=== PATIENT | male | born 1965 | race Caucasian/White ===

== ENCOUNTER → 2016-12-09 | Outpatient (CLI) | payer BC ==
[~2016-12-09] MED LIST: AMOX875T PO; CETI10TA84 PO; ONDA4TAB10 SL; OXYC1TAB3 PO; SULF1TAB92 PO; TAMS0.4C38 PO
--- NOTE | 2016-12-09 10:29 | DIAGNOSTIC IMAGING REPORT ---
ULTRASOUND KIDNEYS AND BLADDER CLINICAL HISTORY: Hematuria. COMPARISON STUDY: Abdominal CT dated 09/16/2015. TECHNIQUE: Real-time, grayscale, and color flow sonography of the kidneys and bladder is performed. Images are reviewed in the transverse and longitudinal planes. FINDINGS: Kidneys: The kidneys are normal in size and echotexture. The right kidney measures 12.1 cm in length and the left kidney measures 11.4 cm in length. There is no hydronephrosis. No shadowing renal calculi are identified. There is no sonographic evidence of contour deforming renal mass lesion. No perinephric fluid is identified. Bladder: The bladder is decompressed and grossly unremarkable. Bilateral ureteral jets were seen. IMPRESSION: 1. The kidneys are normal in size and without hydronephrosis. 2. The bladder was decompressed and grossly normal. Both ureteral jets were seen. Electronically signed by: Dio Carter M.D. 12/09/2016 10:28 AM Dictated Date/Time: 12/09/2016 10:27 AM
== END | disposition home or self-care (01) ==
LOC: C.ULTR 09:46
PROVIDERS: ATTEND Family Medicine
DX: M54.9 Dorsalgia, unspecified (principal)

== ENCOUNTER 2016-12-13 18:04 | Emergency (ER) | payer BC ==
[~2016-12-13 18:04] MED LIST changes: -AMOX875T PO; -ONDA4TAB10 SL; -OXYC1TAB3 PO; -SULF1TAB92 PO; -TAMS0.4C38 PO
== END 2016-12-13 18:36 | disposition left against medical advice (07) ==
LOC: C.EDB 18:05
DX: R50.9 Fever, unspecified (principal)

== ENCOUNTER 2016-12-16 08:58 | Emergency (ER) | payer BC ==
[~2016-12-16] VITALS: Ht 185.4 cm; Wt 130.0 kg
[2016-12-16 09:04] VITALS: TEMP 37.1; Ht 185.4 cm; Wt 130.0 kg
[2016-12-16 09:29] LABS: BASO % 0.4 %; BASO ABS # 0.04 K/uL (0-0.2); COMPLETE YES; EOS % 0.3 %; HEMATOCRIT 41.6 % (42-52); IG% 0.2 %; LYMPH % 7.2 %; LYMPH ABS # 0.66 K/uL (1.2-3.4); MEAN CELL VOLUME 87.2 fL (80-100); MEAN CORPUSCULAR HEMOGLOBIN 31.7 pg (25-34); MEAN CORPUSCULAR HGB CONC 36.3 g/dl (32-36); MEAN PLATELET VOLUME 8.6 fL (7.4-10.4); MONO % 9.7 %; NEUT % 82.2 %; PLATELET COUNT 283 K/uL (130-400); RED BLOOD COUNT 4.77 M/uL (4.7-6.1); WHITE BLOOD COUNT 9.15 K/uL (4.8-10.8)
[2016-12-16] MEDS ORDERED: SULF1TAB92 PO (09:42)
[2016-12-16 09:48] LABS: CALCIUM 8.4 mg/dl (8.5-10.1); CREATININE 1.2 mg/dl (0.60-1.40); POTASSIUM 3.9 mmol/L (3.5-5.1)
[2016-12-16 09:51] LABS: ALB/GLOB RATIO 0.8 (0.9-2)
[2016-12-16] MEDS ORDERED: MoRPHine SULFATE 10 MG/ML CARP/VIAL IV STA (10:06)
[2016-12-16] MEDS ORDERED: KETOROLAC TROMETHAMINE 30 MG/ML VIAL IV STA (10:06)
[2016-12-16] MEDS ORDERED: ONDANSETRON INJ 2 MG/ML 2 ML VIAL IV STA (10:06)
[2016-12-16] MEDS ORDERED: TAMSULOSIN HCL 0.4 MG CAP PO ONE (10:15)
--- NOTE | 2016-12-16 11:02 | DIAGNOSTIC IMAGING REPORT ---
ABDOMEN AND PELVIS CT WITHOUT CONTRAST CT DOSE: 1118.00 mGycm HISTORY: Flank pain left flank pain/history kidney stones TECHNIQUE: Multiaxial CT images of the abdomen and pelvis were performed without the use of intravenous and oral contrast according to the standard department stone protocol. COMPARISON STUDY: 09/16/2015 FINDINGS: Chronic atelectatic change at both lung bases. Liver spleen and pancreas are unremarkable. The left Kidneys is negative for calcification or hydronephrosis. There is slight fullness of the right renal collecting system with evidence for proximal right ureteral calculus measuring 4 mm. There are no obstructing left-sided calcifications. Bowel pattern is nonobstructive. The appendix is normal. There are several scattered colonic diverticuli with no evidence for diverticulitis. Bowel pattern is again nonobstructive. IMPRESSION: 1. Partially obstructing 4 mm calculus proximal right ureter. 2. Mild hydroureteronephrosis on the right. 3. Mild chronic sigmoid diverticulosis. 4. Normal appendix 5. Nonobstructive bowel pattern. Electronically signed by: Chapo Villegas M.D. 12/16/2016 11:01 AM Dictated Date/Time: 12/16/2016 10:56 AM
[2016-12-16 12:18] LABS: URINE APPEARANCE CLEAR (CLEAR); URINE NITRITE POS (NEG); URINE PH 5.5 (4.5-7.5); URINE SPECIFIC GRAVITY 1.024 (1.000-1.030); UROBILINOGEN POS (NEG); ZZUR CULT IF INDIC CLEAN CATCH YES
[2016-12-16 12:29] LABS: MANUAL MICROSCOPIC REQUIRED? NO; REVIEW REQ? YES; URINE BILIRUBIN 1+ (NEG); URINE COLOR AMBER
--- NOTE | 2016-12-16 12:44 | EMERGENCY ROOM VISIT NOTE ---
History First contact with patient: 09:57 Chief Complaint: ABDOMINAL PAIN Stated Complaint: ABD PAIN Nursing Triage Summary: pt to the ED via EMS from PMD office with c/o lower abd pain for 2-3 wks with n/v pain goes to left flank area no urinary complaints History of Present Illness The patient is a 51 year old male who presents to the Emergency Room via EMS from [facility] and from the hospital with complaints of right flank pain. The patient states that he has had right lower abdominal pain for the last 2-3 weeks with associated nausea vomiting. The patient also has noticed hematuria but denies any urinary urgency, frequency or dysuria. The patient denies any fever. The patient does have a history of kidney stones. He has never seen a urologist for his kidney stones. He has always passed stones. The patient does admit that he has been on Bactrim DS for 1 week for UTI symptoms. He has not noticed any improvement. He states his urine still smells very strong. Review of Systems 10 system review was performed and was negative unless stated otherwise history of present illness. Past Medical/Surgical History Medical Problems: (1) Diverticulitis Kidney stones Social History Smoking Status: Never Smoker Drug Use: none Marital Status: Housing Status: lives with family Occupation Status: employed Current/Historical Medications Scheduled Cetirizine (Zyrtec), 10 MG PO QPM Trimethoprim/Sulfamethoxazole (Bactrim 400MG/80MG), 1 TAB PO Q12H Allergies Coded Allergies: Ciprofloxacin (Verified Allergy, Mild, itching, rash, 12/16/16) Physical Exam Vital Signs Date Time Temp Pulse Resp B/P Pulse Ox O2 Delivery O2 Flow Rate FiO2 12/16/16 11:20 98 16 116/76 94 Room Air 12/16/16 09:04 37.1 114 20 140/95 94 Room Air Pain Rating (0-10): 7.0 Physical Exam GENERAL: 51-year-old white male appears uncomfortable secondary to abdominal pain. MENTAL Status: Alert and oriented 3. MOUTH: Mucosa is moist NECK: Supple, no lymphadenopathy noted. No carotid bruits noted. LUNGS: Clear auscultation without wheezes rales or rhonchi. CARDIAC: Regular rate and rhythm without murmur. Pulses is full and equal throughout. BACK: No CVA tenderness noted. ABDOMEN: Positive bowel sounds all 4 quadrants. Soft, mild tenderness in the right lower quadrant otherwise nontender to palpation without organomegaly or masses. No rebound or rigidity noted EXTREMITIES: No cyanosis or edema noted. Medical Decision & Procedures ER Provider Diagnostic Interpretation: ABDOMEN AND PELVIS CT WITHOUT CONTRAST CT DOSE: 1118.00 mGycm HISTORY: Flank pain left flank pain/history kidney stones TECHNIQUE: Multiaxial CT images of the abdomen and pelvis were performed without the use of intravenous and oral contrast according to the standard department stone protocol. COMPARISON STUDY: 09/16/2015 FINDINGS: Chronic atelectatic change at both lung bases. Liver spleen and pancreas are unremarkable. The left Kidneys is negative for calcification or hydronephrosis. There is slight fullness of the right renal collecting system with evidence for proximal right ureteral calculus measuring 4 mm. There are no obstructing left-sided calcifications. Bowel pattern is nonobstructive. The appendix is normal. There are several scattered colonic diverticuli with no evidence for diverticulitis. Bowel pattern is again nonobstructive. IMPRESSION: 1. Partially obstructing 4 mm calculus proximal right ureter. 2. Mild hydroureteronephrosis on the right. 3. Mild chronic sigmoid diverticulosis. 4. Normal appendix 5. Nonobstructive bowel pattern. Electronically signed by: Chapo Villegas M.D. 12/16/2016 11:01 AM Laboratory Results 12/16/16 09:11 Red Blood Count 4.77, Mean Corpuscular Volume 87.2, Mean Corpuscular Hemoglobin 31.7, Mean Corpuscular Hemoglobin Concent 36.3, Mean Platelet Volume 8.6, Neutrophils (%) (Auto) 82.2, Lymphocytes (%) (Auto) 7.2, Monocytes (%) (Auto) 9.7, Eosinophils (%) (Auto) 0.3, Basophils (%) (Auto) 0.4, Neutrophils # (Auto) 7.51, Lymphocytes # (Auto) 0.66, Monocytes # (Auto) 0.89, Eosinophils # (Auto) 0.03, Basophils # (Auto) 0.04 12/16/16 09:11 Test 12/16/16 09:11 12/16/16 11:00 White Blood Count 9.15 K/uL (4.8-10.8) Red Blood Count 4.77 M/uL (4.7-6.1) Hemoglobin 15.1 g/dL (14.0-18.0) Hematocrit 41.6 % (42-52) Mean Corpuscular Volume 87.2 fL (80-100) Mean Corpuscular Hemoglobin 31.7 pg (25-34) Mean Corpuscular Hemoglobin Concent 36.3 g/dl (32-36) Platelet Count 283 K/uL (130-400) Mean Platelet Volume 8.6 fL (7.4-10.4) Neutrophils (%) (Auto) 82.2 % Lymphocytes (%) (Auto) 7.2 % Monocytes (%) (Auto) 9.7 % Eosinophils (%) (Auto) 0.3 % Basophils (%) (Auto) 0.4 % Neutrophils # (Auto) 7.51 K/uL (1.4-6.5) Lymphocytes # (Auto) 0.66 K/uL (1.2-3.4) Monocytes # (Auto) 0.89 K/uL (0.11-0.59) Eosinophils # (Auto) 0.03 K/uL (0-0.5) Basophils # (Auto) 0.04 K/uL (0-0.2) RDW Standard Deviation 40.9 fL (36.4-46.3) RDW Coefficient of Variation 12.7 % (11.5-14.5) Immature Granulocyte % (Auto) 0.2 % Immature Granulocyte # (Auto) 0.02 K/uL (0.00-0.02) Anion Gap 8.0 mmol/L (3-11) Est Creatinine Clear Calc Drug Dose 100.6 ml/min Estimated GFR () 79.5 Estimated GFR (Non- 68.6 BUN/Creatinine Ratio 13.0 (10-20) Calcium Level 8.4 mg/dl (8.5-10.1) Total Bilirubin 2.0 mg/dl (0.2-1) Direct Bilirubin 1.0 mg/dl (0-0.2) Aspartate Amino Transf (AST/SGOT) 50 U/L (15-37) Alanine Aminotransferase (ALT/SGPT) 86 U/L (12-78) Alkaline Phosphatase 119 U/L (45-117) Total Protein 7.2 gm/dl (6.4-8.2) Albumin 3.2 gm/dl (3.4-5.0) Globulin 4.0 gm/dl (2.5-4.0) Albumin/Globulin Ratio 0.8 (0.9-2) Lipase 227 U/L (73-393) Urine Color MAURICE Urine Appearance CLEAR (CLEAR) Urine pH 5.5 (4.5-7.5) Urine Specific [place] 1.024 (1.000-1.030) Urine Protein NEG (NEG) Urine Glucose (UA) NEG (NEG) Urine Ketones TRACE (NEG) Urine Occult Blood TRACE (NEG) Urine Nitrite POS (NEG) Urine Bilirubin 1+ (NEG) Urine Urobilinogen POS (NEG) Urine Leukocyte Esterase SMALL (NEG) Medications Administered Medications (Trade) Dose Ordered Sig/Zully Route Start Time Stop Time Status Last Admin Dose Admin Ketorolac Tromethamine (Toradol Inj) 30 mg NOW STAT IV 12/16/16 10:06 12/16/16 10:08 DC 12/16/16 10:20 30 MG Tamsulosin HCl (Flomax Cap) 0.4 mg NOW ONCE PO 12/16/16 10:15 12/16/16 10:16 DC 12/16/16 10:19 0.4 MG Morphine Sulfate (MoRPHine SULFATE INJ) 8 mg NOW STAT IV 12/16/16 10:06 12/16/16 10:08 DC 12/16/16 10:21 8 MG Ondansetron HCl (Zofran Inj) 4 mg NOW STAT IV 12/16/16 10:06 12/16/16 10:08 DC 12/16/16 10:18 4 MG ED Course The patient was evaluated. IV access was obtained. The patient was given 1 L normal saline wide-open. He was given Toradol 30 mg IV, morphine 6 mg IV and Zofran 4 mg IV. He was also given Flomax 0.4 mg by mouth. CBC and differential , renal profile, LFTs and lipase levels were ordered. Urinalysis was ordered. CT stone study was ordered and interpreted as above with a 4 mm partially obstructing proximal right ureteral calculi with mild hydronephrosis. The patient was reevaluated was feeling better. He was informed of the findings. CBC was unremarkable. Metabolic profile revealed slightly elevated LFTs but otherwise unremarkable. Urinalysis revealed positive leukocytes positive nitrates and positive blood. Urine will be sent for culture. The patient was reevaluated was feeling better. The patient was informed of all findings. The patient was discharged home in stable condition. Medical Decision Differential diagnosis include UTI, pyelonephritis, ureteral calculi, acute appendicitis, diverticulitis Due to the patient's history of kidney stones and hematuria most likely diagnosis was ureteral calculi. Impression Primary Impression: Ureteral calculus, right Additional Impression: UTI (urinary tract infection) Departure Information Condition GOOD Referrals James Benjamin MD (PCP) Low Buchanan MD Forms Call Back Authorization, HOME CARE DOCUMENTATION FORM, IMPORTANT VISIT INFORMATION Patient Instructions ED UTI Cystitis Male, Kidney Stones - [facility], [facility] Additional Instructions Push fluids. Strain all urine. Ibuprofen 600 mg every 6 hours with food for pain. Take OxyIR as needed for more severe pain. Do not drive while taking the OxyIR. Take Flomax as prescribed. Take Augmentin as prescribed. Recommend follow-up with your PCP in 1 week for a repeat urinalysis. Also if you do not pass a stone in 1 week [address] appointment [address] Norman. If you have any worsening of symptoms, return to ER. Problem Qualifiers Additional Impression: UTI (urinary tract infection) Urinary tract infection type: acute cystitis Hematuria presence: with hematuria Qualified Codes: N30.01 - Acute cystitis with hematuria
[2016-12-16] MEDS ORDERED: ONDA4TAB10 SL (12:46)
[2016-12-16] MEDS ORDERED: OXYC1TAB3 PO (12:46)
[2016-12-16] MEDS ORDERED: TAMS0.4C38 PO (12:46)
[2016-12-16] MEDS ORDERED: AMOX875T PO (12:46)
[2016-12-16 12:50] LABS: URINE MUCUS PRESENT (NONE PRSENT)
[2016-12-16 12:57] VITALS: BP 106/76; PULSE 93; O2SAT 94
== END 2016-12-16 12:59 | disposition home or self-care (01) ==
LOC: EDBD 08:58 → C.EDC 08:59
DX: N20.1 Calculus of ureter (principal); N13.2 Hydronephrosis with renal and ureteral calculous obstruction; N39.0 Urinary tract infection, site not specified; K57.32 Diverticulitis of large intestine without perforation or abscess without bleeding; Z88.2 Allergy status to sulfonamides